=== PATIENT | female | born 1990 | race Caucasian/White ===

== ENCOUNTER 2017-02-08 06:22 | Inpatient (IN) | payer OTHER ==
[~2017-02-08] VITALS: Ht 167.6 cm; Wt 86.5 kg
--- NOTE | ~2017-02-08 | HP ---
PATIENT'S NAME: WAYNE AGUERO [facility] AGE: 26 Y [address] ROOM: [place] [address] LOCATION: GO ADMIT DATE: 02/08/2017 History & Physical DISCHARGE DATE: FAMILY PHYSICIAN: Aleksander Mcallister MD ATTENDING PHYSICIAN: FARRUKH ROQUE DATE OF SERVICE: CHIEF COMPLAINT: Gush of fluid and vaginal bleeding. HISTORY OF PRESENT ILLNESS: The patient is 26-year-old, G2, P1-0-0-1, with Dichorionic diamniotic twin intrauterine at 27 weeks 6 days. The patient reported a gush of fluid while she was lying in bed this morning. It was bloody, she then went to the bathroom and continued to have leaking of fluid that was blood-tinged, and thus presented to labor and delivery. She denied any contractions. No intercourse in the last 24 to 48 hours. She did have some back pain over the weekend, but stated it was more musculoskeletal feeling than feeling like contractions. This has been complicated by significant size discrepancy of the twins, since her initial ultrasound in the first trimester. Twin B, at times has been oligohydramnios. She has been seen in consultation with [facility]. At her last scan, the growth was no longer IUGR and the fluid actually appeared to be normal. However, there was minimal lung tissue noted in the chest of Twin B. The patient did have her cervix checked on 01/25 due to contractions and abdominal pain and was found to be closed, thick, and high. Cervical length was done and was found to be over 5-cm. PAST MEDICAL HISTORY: None. PAST SURGICAL HISTORY: History of section. FAMILY HISTORY: Noncontributory. OB HISTORY: She is a -0-0-1. She has a history of a term delivery via section for arrest. SOCIAL HISTORY: No tobacco, alcohol, or drug use. She is and her is present with her today. PATIENT'S NAME: WAYNE AGUERO [facility] AGE: 26 Y [address] ROOM: [place] [address] LOCATION: [facility] ADMIT DATE: 02/08/2017 History & Physical DISCHARGE DATE: FAMILY PHYSICIAN: Aleksander Mcallister MD ATTENDING PHYSICIAN: FARRUKH ROQUE REVIEW OF SYSTEMS: Negative except as noted in the HPI. PHYSICAL EXAMINATION: VITAL SIGNS: Reviewed and normal. GENERAL: She is alert and oriented, in no acute distress. ABDOMEN: Soft, gravid, and nontender. heart tones, baseline of 140, moderate variability, positive accelerations, no decelerations for both twins. Sterile speculum exam on admission showed pooling of blood-tinged fluid that was Nitrazine negative and ferning negative. Her cervix at that time, was found to be 1, 30, and -3. The exam was repeated 2 hours later with findings unchanged. However in the mean time, the patient did start marcy every 3 to 5 minutes on tocometry as well as feeling them. Hemoglobin 11.2 and white blood cell count 12.4. ASSESSMENT: The patient is a 26-year-old, G2, P1-0-0-1, with dichorionic diamniotic twin intrauterine at 27 weeks 6 days with vaginal bleeding and contractions and cervical dilation. PLAN: I discussed with the patient that she technically does not meet the criteria for labor. She is not 2 cm dilated and 80% effaced, however given the bleeding, contractions, and the fact that she has changed her cervix from closed and progressed to 1 and 30, has me concerned. I would like to admit her for observation. Over the next 24 hours, I want to give her Celestone 12 mg IM today and repeat the dose in 24 hours. If the patient's cervix remains unchanged and she is stable, we could discuss discharge tomorrow, if the patient continues to contract and change her cervix, then we will give magnesium for neuroprotection, Indocin for tocolysis, penicillin for group B strep prophylaxis and send her to [place] as she is less than 30 weeks. I have also discussed this with the MFM in [place]. The patient and her are comfortable with this plan. MD DUANE TAYLOR/greer /[id number] D: T: [id number] HISTORY & PHYSICAL
[~2017-02-08 06:22] MED LIST: IBUPROFEN800 MG PO; PERCOCET 5-3251 EACH PO; PRENATAL TABLE1 EAC1 PO
[2017-02-08] MEDS ORDERED: FEOSOL325 MG PO (07:42)
[2017-02-08] MEDS ORDERED: COLACE100 MG PO (07:43)
[2017-02-08 08:09] LABS: BASOPHIL % 0.2 %; EOSINOPHIL # 0.2 K/uL (0.0-0.5); EOSINOPHIL % 1.4 %; HEMATOCRIT 33.1 % (33.0-46.0); HEMOGLOBIN 11.2 g/dL (11.0-15.0); IMMATURE GRANULOCYTE # 0.1 K/uL (0.0-0.3); LYMPHOCYTE # 2.2 K/uL (0.8-4.0); LYMPHOCYTE % 17.6 %; MCH 29.6 pg (27.0-34.0); MCHC 33.8 gm/dL (32.0-36.5); MCV 87.3 fl (83.0-98.0); MONOCYTE # 0.5 K/uL (0.0-1.0); MPV 10.3 fl (9.4-12.4); NEUTROPHIL # (ANC) 9.4 K/uL (1.8-7.8); NEUTROPHIL % 75.8 %; NRBC % 0 /100WBC (0-0.00); PLATELET COUNT 191 K/uL (150-450); RBC 3.79 M/uL (3.50-5.00); RDW-CV 12.7 % (11.9-14.6); WBC 12.4 K/uL (4.0-11.0)
--- NOTE | 2017-02-08 20:29 | NUR ---
PATIENT TRANSFERED TO [facility] IN [place]. VSS BEFORE LEAVING, FHT'S ON A AND B STABLE. PATIENT DENIED FEELING ANY CONTRACTIONS. REPORT CALLED TO [place] AND INFORMED PATIENT LEFT [facility] AT 1900.
== END 2017-02-08 18:56 | disposition hospice, home (50) | DRG 778 ==
LOC: GOBS 06:22
PROVIDERS: Obstetrics & Gynecology; ADMIT Obstetrics & Gynecology
DX: O60.02 Preterm labor without delivery, second trimester (principal); O34.211 Maternal care for low transverse scar from previous cesarean delivery; O30.042 Twin pregnancy, dichorionic/diamniotic, second trimester; Z3A.27 27 weeks gestation of pregnancy; O46.92 Antepartum hemorrhage, unspecified, second trimester; O36.5920 Maternal care for other known or suspected poor fetal growth, second trimester, not applicable or unspecified
CPT/HCPCS: G0463; J0702; J1364; J3475; J7040; J7120